=== PATIENT | male | born 1995 | race Two or more races ===

== ENCOUNTER 2018-10-23 18:23 | Emergency (ER) | payer OTHER ==
[~2018-10-23] VITALS: Ht 170.2 cm; Wt 44.5 kg
[2018-10-23] MEDS ORDERED: OMEPRAZOLE20 MG (18:50)
[2018-10-23] MEDS ORDERED: IRON325 MG (18:51)
[2018-10-23] MEDS ORDERED: SINGULAIR10 MG (18:51)
== END 2018-10-23 22:06 | disposition home or self-care (01) ==
LOC: ER 18:23
DX: F50.00 Anorexia nervosa, unspecified (principal); F50.2 Bulimia nervosa